=== PATIENT | female | born 1955 | race African-American/Black ===

== ENCOUNTER 2017-02-21 07:29 | Emergency (ER) | payer MEDICARE ==
[2017-02-21] MEDS: TETANUS AND DIPHTHERIA TOX/PF 0.5 ML DISP.SYRIN. VAX IM (08:17)
[2017-02-21 08:38] LABS: ADD MAN DIFF? NO
[2017-02-21 08:39] LABS: BASO # 0.1 x10^3/uL (0.0-0.2); BASO % 1 % (0-3); EOS # 0.2 x10^3/uL (0.0-0.7); EOS % 2 % (0-3); HEMATOCRIT 39.4 % (36.0-47.0); HEMOGLOBIN 12.4 g/dL (12.0-15.5); LYMPH # 1.6 x10^3/uL (1.0-4.8); LYMPH % 16 % (24-48); MEAN CORPUSCULAR HEMOGLOBIN 28 pg (25-35); MEAN CORPUSCULAR HGB CONC 32 g/dL (31-37); MEAN CORPUSCULAR VOLUME 89 fL (79-100); MONO # 0.6 x10^3/uL (0.0-1.1); MONO % 6 % (0-9); NEUT # 7.6 x10^3uL (1.8-7.7); NEUT % 75 % (31-73); PLATELET COUNT 249 x10^3/uL (140-400); RED BLOOD COUNT 4.42 x10^6/uL (3.50-5.40); RED CELL DISTRIBUTION WIDTH 14.6 % (11.5-14.5); WHITE BLOOD COUNT 10.2 x10^3/uL (4.0-11.0)
[2017-02-21 08:49] LABS: INR 2.2 (0.8-1.1); PROTHROMBIN TIME PATIENT 23.3 SEC (11.7-14.0)
[2017-02-21 08:58] LABS: ANION GAP 7 (6-14); BLOOD UREA NITROGEN 35 mg/dL (7-20); CALCIUM 8.8 mg/dL (8.5-10.1); CARBON DIOXIDE 33 mmol/L (21-32); CHLORIDE 99 mmol/L (98-107); CREATININE 1.1 mg/dL (0.6-1.0); GFR 61.1; GLUCOSE 99 mg/dL (70-99); SODIUM 139 mmol/L (136-145)
== END 2017-02-21 09:47 | disposition home or self-care (01) ==
LOC: ER 07:29
DX: S00.03XA Contusion of scalp, initial encounter (principal); I27.20 Pulmonary hypertension, unspecified; Z95.0 Presence of cardiac pacemaker; Z99.81 Dependence on supplemental oxygen; E78.00 Pure hypercholesterolemia, unspecified; I10 Essential (primary) hypertension; I25.10 Atherosclerotic heart disease of native coronary artery without angina pectoris; W01.0XXA Fall on same level from slipping, tripping and stumbling without subsequent striking against object, initial encounter; Y93.89 Activity, other specified; Y99.8 Other external cause status; Y92.89 Other specified places as the place of occurrence of the external cause
CPT/HCPCS: 36415; 70450; 80048; 85025; 85610; 90471; 90714; 93005; 99285-25